=== PATIENT | male | born 1980 ===

== ENCOUNTER 2016-12-19 09:33 | Day surgery (SDC) | payer BC ==
[2016-12-19] MEDS ORDERED: Lactated Ringer's 500 ML IV ONE (11:31)
[2016-12-19] MEDS ORDERED: Midazolam 2 MG/2 ML VIAL ONE (11:47)
[2016-12-19] MEDS ORDERED: Propofol 10 mg/ml Inj (20 ML) ONE (11:47)
[2016-12-19 12:41] VITALS: TEMP 96.6
[2016-12-19 12:55] VITALS: BP 117/62; PULSE 69; RESP 13; O2SAT 96
== END 2016-12-19 12:58 | disposition home or self-care (01) ==
LOC: H.ENDO 09:33
PROVIDERS: ATTEND Internal Medicine Gastroenterology
DX: K92.2 Gastrointestinal hemorrhage, unspecified (principal); K62.5 Hemorrhage of anus and rectum; K64.4 Residual hemorrhoidal skin tags; K64.1 Second degree hemorrhoids
CPT/HCPCS: 45380; 88305; J2250; J2704; J7120